=== PATIENT | male | born 2000 | race Caucasian/White ===

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

== ENCOUNTER 2024-08-01 17:44 | Emergency (ER) | payer OTHER ==
[2024-08-01] MEDS ORDERED: TDAP (DIPHTH,PERTUSS(ACELL),TET VAC) 0.5 ML VIAL IMVAC ONE (18:02)
[2024-08-01] MEDS ORDERED: NA CHLORIDE 0.9% 1,000 ML ONE (18:02)
[2024-08-01 18:41] LABS: Absolute Basophils 0.1 K/uL (0-0.5); Absolute Eosinophils 0.1 K/uL (0-0.5); Absolute Lymphocytes (CBC) 2.7 K/uL (0.7-4.9); Absolute Monocytes 0.7 K/uL (0.1-1.3); Absolute Neutrophil 4.6 K/uL (1.8-8.0); Basophils % 0.8 % (0-1.3); Eosinophils % 1.7 % (0-4.4); Hematocrit 47.5 % (39.6-49.0); Hemoglobin 16.2 g/dL (13.6-17.9); Lymphocytes % 32.9 % (15.3-44.8); MCH 32.6 pg (27.0-35.0); MCHC 34.2 g/dL (32.0-36.0); MCV 95.2 fL (80-100); MPV 6.9 fL (7.6-11.3); Monocytes % 8.4 % (3.3-12.3); Neutrophils % 56.2 % (41.7-73.7); Nucleated RBC Absolute Count 0.1 (0-0); Nucleated Red Blood Cells % 0.7 % (0-0); Platelets 389 thou/uL (152-406); RBC Red Blood Cell Count 4.98 M/uL (4.33-5.43); Red Cell Distribution Width 13.4 % (12.1-15.2)
[2024-08-01 18:57] LABS: Albumin 4.4 g/dL (3.4-5.0); Albumin/Globulin Ratio 1.3 (1.1-1.8); Anion Gap 10.8 mEq/L (5.0-15.0); Bilirubin Total 0.6 mg/dL (0.2-1.0); Globulin 3.5 g/dL (2.3-3.5); Potassium 3.8 mEq/L (3.5-5.1); Protein, Total 7.9 g/dL (6.4-8.2)
[2024-08-01 19:00] LABS: SARS-CoV-2 Antigen CONTROL BLUE LINE VIS/BG OK; SARS-CoV-2 Antigen Rapid Res Negative (Negative)
--- NOTE | 2024-08-01 19:31 | EDPHYS ---
Physician Documentation [facility] Name: Eric Harvey Age: 23 yrs Sex: Male : 2000 Arrival Date: 08/01/2024 Time: 17:44 Bed 20 Private MD: ED Physician Roland Fernandez HPI: 08/01 18:44 This 23 yrs old Male presents to ER via Ambulatory with complaints of Animal Bite - kb raccoon. 19:33 Pt is a 23 year old male who presents for raccoon bite, headache, subjective fever and kb decreased appetite. Pt states he was bitten by raccoon 3 times last night, only broke skin in right middle finger. States he woke up with headache, decreased appetite, and significant other reports pt felt like he had a fever. Pt states he did drink a lot of alcohol last night as well. . Historical: - Allergies: 18:02 walnuts; hb - Home Meds: 18:02 Lamictal Oral [Active]; Keppra Oral [Active]; hb - PMHx: 18:02 Seizures; hb - PSHx: 18:02 Tonsillectomy; Adenoid excision; hb - Immunization history:: Adult Immunizations up to date. - Infectious Disease History:: Denies. - Social history:: Smoking status: . ROS: 18:28 Constitutional: As per HPI kb Exam: 18:28 Constitutional: This is a well developed, well nourished patient who is awake, alert, kb and in no acute distress. Head/Face: Normocephalic, atraumatic. ENT: Moist Mucous membranes Cardiovascular: Regular rate Respiratory: Respirations even and unlabored. No increased work of breathing. Talking in full sentences Abdomen/GI: Soft, non-tender. No distention MS/ Extremity: Pulses equal, no cyanosis. Neurovascular intact. Full, normal range of motion. Neuro: Awake and alert, GCS 15, oriented to person, place, time, and situation. Moves all extremities. Normal gait. 18:28 Skin: injury, bite(s), superficial, of the palmar aspect of distal phalanx of right middle finger, Vital Signs: 17:59 BP 133 / 96; Pulse 88; Resp 16; Temp 98.5(O); Pulse Ox 98% on R/A; Weight 64.41 kg; hb Height 5 ft. 9 in. ; Pain 5/10; 19:35 BP 136 / 77; Pulse 82; Resp 16 S; Temp 98.3(O); Pulse Ox 99% on R/A; Pain 0/10; mt4 17:59 Body Mass Index 20.97 (64.41 kg, 175.26 cm) hb 17:59 Pain Scale: Adult hb 19:35 Pain Scale: Adult mt4 Shahla Coma Score: 19:42 Eye Response: spontaneous(4). Motor Response: obeys commands(6). Verbal Response: mt4 oriented(5). Total: 15. MDM: 17:50 Patient medically screened. kb 18:29 Data reviewed: vital signs, nurses notes. kb 18:43 Differential diagnosis: superficial laceration, rabies, dehydration, viral illness, kb abnormal electrolytes. 19:32 Counseling: I had a detailed discussion with the patient and/or guardian regarding the kb historical points, exam findings, and any diagnostic results supporting the discharge/admit diagnosis, lab results, the need for outpatient follow up, a family practitioner, to return to the emergency department if symptoms worsen or persist or if there are any questions or concerns that arise at home. ED course: Pt feeling better. Tolerating po intake, nontoxic in appearance. Educated on follow up with health department for rabies vaccination if desired. PD came to take report while pt was in room. . 08/01 17:55 Order name: CBC with Diff; Complete Time: 18:51 kb 08/01 17:55 Order name: CMP; Complete Time: 18:59 kb 08/01 17:55 Order name: Flu; Complete Time: 19:12 kb 08/01 17:55 Order name: SARS-COV-2 Antigen Rapid; Complete Time: 19:00 kb 08/01 17:55 Order name: IV Start; Complete Time: 18:14 kb Administered Medications: 18:14 Drug: Tetanus-Diphtheria Toxoid IM Adult 0.5 ml IM once; Provide Vaccine Information kc6 Statement (VIS). {Learning Specialist: [place]; Exp: FriSep 05 2026; Lot #: [id number]; Series: 1 of 1; Patient Consent: Obtained; Date/Time: ; Source Name: Eric Harvey; Source Relationship: Self; Address Information: [address] [place] [id number]; ; Education: Provided; VIS Presented Date: ; VIS Publication: Tetanus/Diphtheria (Td) Vaccine VIS 02/25/2017 (historic)} Route: IM; Site: left deltoid; 18:33 Follow up: Response: No adverse reaction 6 18:14 Drug: NS 0.9% IV 1000 ml IV at 1000 ml once Route: IV; Rate: 1000 ml; Site: right kc6 forearm; 19:35 Follow up: Response: No adverse reaction; IV Status: Completed infusion mt4 Disposition: 08/02 07:44 Co-signature as Attending Physician, Roland Fernandez MD I reviewed the patient's care rn provided by the Advanced Practice Provider and agree with the diagnosis and treatment plan. Disposition Summary: 08/01/24 19:31 Discharge Ordered Notes: Location: Home kb Condition: Stable kb Diagnosis - Bitten by raccoon, initial encounter kb Followup: kb - With: Emergency Department - When: As needed - Reason: Worsening of condition Followup: kb - With: Private Physician - When: 2 - 3 days - Reason: Recheck today's complaints, Continuance of care, Re-evaluation by your physician Discharge Instructions: - Discharge Summary Sheet kb - Animal Bite, Adult, [id number] kb Forms: - Medication Reconciliation Form kb - Antibiotic Education kb - Prescription Opioid Use kb - Patient Portal Instructions kb - Leadership Thank You Letter kb Prescriptions: - Augmentin 875-125 mg Oral Tablet - take 1 tablet ORAL route every 12 hours for 10 days; 20 tablet; Refills: 0, kb Product Selection Permitted Signatures: Dispatcher [employer] EDWV Emerald Wynn, TWISTER IN-C TWISTER IN-Ckb Roland Fernandez MD MD rn Baxter, Heather, RN RN hb Campbell, Kaitlyn, RN RN 6 Tiara Babin RN mt4 Corrections: (The following items were deleted from the chart) 08/01 17:55 17:55 CBC+H.LAB.BRZ ordered. EDMS EDMS 17:55 17:55 COMPREHENSIVE METABOLIC PANEL+C.LAB.BRZ ordered. EDMS EDMS 17:55 17:55 Influenza Screen (A \T\ B)+BA.LAB.BRZ ordered. EDMS EDMS 17:55 17:55 SARS-COV-2 Antigen Rapid+I.YULI.BRZ ordered. EDMS EDMS
--- NOTE | 2024-08-01 19:31 | ER ---
Nurse's Notes [facility] Name: Eric Harvey Age: 23 yrs Sex: Male : 2000 Arrival Date: 08/01/2024 Time: 17:44 Bed 20 Private MD: Diagnosis: Bitten by raccoon, initial encounter Presentation: 08/01 17:59 Chief complaint: Patient states: "I was drinking last night and tried to pet a raccoon hb and he bit me." Also reports nausea, headache, and severe fatigue upon waking today. Bite wolfe noted to right middle finger tip. Coronavirus screen: At this time, the client does not indicate any symptoms associated with coronavirus-19. Ebola Screen: No symptoms or risks identified at this time. Initial Sepsis Screen: Does the patient meet any 2 criteria? No. Patient's initial sepsis screen is negative. Does the patient have a suspected source of infection? No. Patient's initial sepsis screen is negative. Risk Assessment: Do you want to hurt yourself or someone else? Patient reports no desire to harm self or others. Onset of symptoms was July 31, 2024. 17:59 Method Of Arrival: Ambulatory hb 17:59 Acuity: ELINA 3 hb Triage Assessment: 19:46 Bite description: bite by a raccoon animal information: vaccination(s) is not up to mt4 date. 19:47 Bite description: bite sustained to left hand. General: Appears in no apparent mt4 distress. comfortable, Behavior is calm, cooperative, appropriate for age, Smells of. Historical: - Allergies: 18:02 walnuts; hb - Home Meds: 18:02 Lamictal Oral [Active]; Keppra Oral [Active]; hb - PMHx: 18:02 Seizures; hb - PSHx: 18:02 Tonsillectomy; Adenoid excision; hb Historical Immunization: - Administered Vaccines 18:14 Tetanus-Diphtheria Toxoid IM Adult 0.5 ml kc6 Psychiatric Cns: [employer]; Exp: FriSep 05 2026; Lot #: [id number]; Series: 1 of 1; Patient Consent: Obtained; Date/Time: ; Source Name: Eric Harvey; Source Relationship: Self; Address Information: [address] [place] [id number]; ; Education: Provided; VIS Presented Date: ; VIS Publication: Tetanus/Diphtheria (Td) Vaccine VIS 02/25/2017 (historic) 18:14 NS 0.9% IV 1000 ml kc6 - Immunization history:: Adult Immunizations up to date. - Infectious Disease History:: Denies. - Social history:: Smoking status: . Screenin:[facility] ED Fall Risk Assessment (Adult) History of falling in the last 3 months, kc6 including since admission No falls in past 3 months (0 pts) Confusion or Disorientation No (0 pts) Intoxicated or Sedated No (0 pts) Impaired Gait No (0 pts) Mobility Assist Device Used No (0 pt) Altered Elimination No (0 pt) Score/Fall Risk Level 0 - 2 = Low Risk Oriented to surroundings. Abuse screen: Denies threats or abuse. Denies injuries from another. Nutritional screening: No deficits noted. Tuberculosis screening: No symptoms or risk factors identified. Assessment: 18:10 Reassessment: Per pt, bite occurred at [address] [place] [address] in [place]. Reported to [facility] hb dispatch. 18:25 Reassessment: [facility] at bedside speaking with pt and significant other. kc 18:31 General: Appears in no apparent distress. comfortable, well groomed, well developed, kc6 Behavior is calm, cooperative, appropriate for age, Reports feeling ill for 12-24 hours, fatigue for 12-24 hours. Pain: Denies pain. Neuro: Level of Consciousness is awake, alert, obeys commands, Oriented to person, place, time, situation, Appropriate for age. Cardiovascular: Capillary refill < 3 seconds. Respiratory: Airway is patent Trachea midline Respiratory effort is even, unlabored, Respiratory pattern is regular, symmetrical. GI: Reports intolerance of fluids, intolerance of food, nausea, Patient currently denies abdominal pain, diarrhea, vomiting. : No signs and/or symptoms were reported regarding the genitourinary system. EENT: No signs and/or symptoms were reported regarding the EENT system. Derm: Skin is healthy with good turgor, Skin is dry, Skin is pink, warm \\T\\ dry. Skin temperature is warm. Musculoskeletal: No signs and/or symptoms reported regarding the musculoskeletal system. Circulation, motion, and sensation intact. Capillary refill < 3 seconds, Range of motion: intact in all extremities. Injury Description: Bite sustained to anterior aspect of right upper chest and palmar aspect of distal phalanx of right middle finger caused by a raccoon, is superficial, from animal, was sustained 12-24 hours ago. 18:43 Reassessment: [facility] officer at bedside. hb 19:42 General: Appears in no apparent distress. distressed, comfortable, Behavior is calm, mt4 cooperative, appropriate for age. Pain: Denies pain. Neuro: Level of Consciousness is awake, alert, obeys commands, Oriented to person, place, time, situation, Appropriate for age Remarketing Rep are equal bilaterally Moves all extremities. Gait is steady, Speech is normal, Facial symmetry appears normal. Cardiovascular: Capillary refill < 3 seconds. Respiratory: Airway is patent GI: Abdomen is non-distended. : Denies burning with urination. Derm: Skin is intact, Skin is dry, Skin is pink, warm \\T\\ dry. Skin temperature is warm. Musculoskeletal: Capillary refill < 3 seconds, Range of motion: intact in all extremities. Vital Signs: 17:59 BP 133 / 96; Pulse 88; Resp 16; Temp 98.5(O); Pulse Ox 98% on R/A; Weight 64.41 kg; hb Height 5 ft. 9 in. ; Pain 5/10; 19:35 BP 136 / 77; Pulse 82; Resp 16 S; Temp 98.3(O); Pulse Ox 99% on R/A; Pain 0/10; mt4 17:59 Body Mass Index 20.97 (64.41 kg, 175.26 cm) hb 17:59 Pain Scale: Adult hb 19:35 Pain Scale: Adult mt4 Jenkinjones Coma Score: 19:42 Eye Response: spontaneous(4). Motor Response: obeys commands(6). Verbal Response: mt4 oriented(5). Total: 15. ED Course: 17:49 Patient arrived in ED. im 17:50 Emerald Wynn FNP-C [facility] kb 17:50 Roland Fernandez MD is Attending Physician. kb 17:56 Daniella Blood, NASH is Primary Nurse. kc6 18:02 Triage completed. hb 18:03 Arm band placed on. hb 18:22 Patient has correct armband on for positive identification. Bed in low position. Call kc6 light in reach. Side rails up X 1. Adult w/ patient. Pulse ox on. NIBP on. Door closed. Noise minimized. Lights dimmed. Pillow given. 18:22 Inserted saline lock: 20 gauge in right forearm, using aseptic technique. Blood kc6 collected. Flushed with 10 mL NS. Patient maintains SpO2 saturation greater than 95% on room air. 19:00 Report given to NASH Menjivar. kc6 19:42 Provided Education on: discharge education . mt4 19:42 No provider procedures requiring assistance completed. IV discontinued, intact, mt4 bleeding controlled, No redness/swelling at site. Pressure dressing applied. Patient maintains SpO2 saturation greater than 95% on room air. Administered Medications: 18:14 Drug: Tetanus-Diphtheria Toxoid IM Adult 0.5 ml IM once; Provide Vaccine Information kc6 Statement (VIS). {Psychiatric Cns: [employer]; Exp: FriSep 05 2026; Lot #: [id number]; Series: 1 ; Patient Consent: Obtained; Date/Time: ; Source Name: Eric Harvey; Source Relationship: Self; Address Information: [address] [place] [address]; ; Education: Provided; VIS Presented Date: ; VIS Publication: Tetanus/Diphtheria (Td) Vaccine VIS 02/25/2017 (historic)} Route: IM; Site: left deltoid; 18:33 Follow up: Response: No adverse reaction [facility] 18:14 Drug: NS 0.9% IV 1000 ml IV at 1000 ml once Route: IV; Rate: 1000 ml; Site: right kc6 forearm; 19:35 Follow up: Response: No adverse reaction; IV Status: Completed infusion mt4 Medication: 19:42 VIS not applicable for this client. mt4 Outcome: 19:31 Discharge ordered by MD. dias 19:42 Discharged to home ambulatory, mt4 19:42 Condition: stable 19:42 Discharge instructions given to patient, significant other, Instructed on discharge instructions, follow up and referral plans. medication usage, Demonstrated understanding of instructions, follow-up care, medications, wound care, Prescriptions given X 1, 19:48 Patient left the ED. mt4 Signatures: Emerald Wynn FNP-C TACTICAL [employer]PONSE GROUP OFFICER-CkAlona Del Rosario, RN RN Daniella Blood RN RN kc6 Ellen Mckeon Molinec, RN RN mt4 Corrections: (The following items were deleted from the chart) 18:11 18:10 Reassessment: Per pt, bite occurred at [address] [place] [address]. Reported to [facility] hb dispatch. hb
[2024-08-01 20:02] VITALS: BP 136/77; TEMP 98.3; O2SAT 99
== END 2024-08-01 19:48 | disposition home or self-care (01) ==
LOC: ER 17:44
DX: S60.470A Other superficial bite of right index finger, initial encounter (principal); W55.51XA Bitten by raccoon, initial encounter; Z11.52 Encounter for screening for COVID-19; Z23 Encounter for immunization
CPT/HCPCS: 85025; 36415; 80053; 87804 ×2; 90471; 96360; 99284; 87811; J7030